=== PATIENT | male | born 1960 | race Caucasian/White ===

== ENCOUNTER 2024-12-24 22:02 | Inpatient (IN) | payer MEDICARE, MEDICAID ==
[~2024-12-24] VITALS: Ht 172.7 cm; Wt 74.4 kg
[2024-12-24] MEDS ORDERED: LEVO25TA9 PO (22:17)
[2024-12-24] MEDS ORDERED: QUET25TA PO (22:17)
[2024-12-24] MEDS ORDERED: ASCO500 PO (22:17)
[2024-12-24] MEDS ORDERED: INSLAN SQ (22:17)
[2024-12-24] MEDS ORDERED: PANT-31 PO (22:17)
[2024-12-24] MEDS ORDERED: LINE600T14 PO (22:17)
[2024-12-24 22:47] LABS: PLATELET COUNT (AUTO) 153 K/uL (150-450); RED BLOOD CELL COUNT(AUTO) 2.48 MIL/uL (4.50-5.90); RED CELL DISTRIBUTION WIDTH 17.4 % (11.5-14.5); WHITE BLOOD COUNT (AUTO) 6.5 K/uL (4.5-11.0)
[2024-12-24 22:55] LABS: CALCIUM, TOTAL 7.6 mg/dL (8.8-10.5); CREATININE 0.84 mg/dL (0.60-1.30); GLOMERULAR FILTR. RATE CALC > 60 mL/min (>60); GLUCOSE,RANDOM 148 mg/dL (70-110); SODIUM SERUM 142 mmol/L (136-145); UREA NITROGEN, BLOOD 20 mg/dL (7-18)
[2024-12-24 23:21] LABS: APPEARANCE,URINE CLEAR (CLEAR); GLUCOSE, URINE (UA) NEGATIVE (NEGATIVE); LEUKOCYTE ESTERASE ,URINE NEGATIVE (NEGATIVE); NITRATE,URINE NEGATIVE (NEGATIVE); OCCULT BLOOD,URINE NEGATIVE (NEGATIVE); PH,URINE DRUG SCREEN 6.0 (5.0-8.0); SPECIFIC GRAVITIY, URINE 1.023 (1.003-1.030)
[2024-12-24 23:26] LABS: ALCOHOL, URINE DRUG SCREEN NEGATIVE (NEGATIVE); AMPHET/METH SCREEN,URINE NEGATIVE (NEGATIVE); BARBITURATE SCREEN, URINE NEGATIVE (NEGATIVE); CANNABINOID SCREEN,URINE NEGATIVE (NEGATIVE); COCAINE SCREEN,URINE NEGATIVE (NEGATIVE); METHADONE SCREEN, URINE NEGATIVE (NEGATIVE)
[2024-12-25 02:36] VITALS: BP 126/70; PULSE 115; RESP 18; TEMP 98.1; O2SAT 98
[2024-12-25 04:07] VITALS: BP 126/70; PULSE 115; RESP 18; TEMP 98.1; O2SAT 98
[2024-12-25 05:53] LABS: COVID AG,FIA SOURCE NASAL SWAB
[2024-12-25 06:13] LABS: SARS-COV2 (COVID) ANTIGEN,FIA Negative (Negative)
[2024-12-25] MEDS ORDERED: NICOTINE 14 MG/24 HOUR PATCH TD PRN (06:15)
[2024-12-25] MEDS ORDERED: DOCUSATE SODIUM 100 MG CAPSULE PO PRN (06:15)
[2024-12-25] MEDS ORDERED: ACETAMINOPHEN 325 MG TABLET PO PRN (06:15)
[2024-12-25] MEDS ORDERED: GuaiFENesin/D-METHORPHAN [SUGAR-FREE] 200-20MG/10 ML SYRUP UDCUP PO PRN (06:15)
[2024-12-25] MEDS ORDERED: ONDANSETRON 4 MG TABLET PO PRN (06:15)
[2024-12-25] MEDS ORDERED: LOPERAMIDE HCL 2 MG CAPSULE PO PRN (06:15)
[2024-12-25] MEDS ORDERED: ALBUTEROL SULFATE HFA 90 MCG/PUFF 8 GM INHALER IH PRN (06:15)
[2024-12-25] MEDS ORDERED: PETROLATUM,WHITE 28 GM JELLY TP PRN (06:15)
[2024-12-25] MEDS ORDERED: MAGNESIUM HYDROXIDE SUSPENSION 30 ML UDCUP PO PRN (06:15)
[2024-12-25] MEDS: LEVOTHYROXINE SODIUM 25 MCG TABLET PO SCH (06:52)
[2024-12-25] MEDS: PANTOPRAZOLE SODIUM 40 MG DR TABLET PO SCH (06:54)
[2024-12-25] MEDS: LINEZOLID 600 MG TABLET PO SCH (10:20)
[2024-12-25] MEDS: ASCORBIC ACID 500 MG TABLET PO SCH (10:20)
[2024-12-25 10:33] VITALS: BP 146/87; PULSE 103; RESP 18; TEMP 98.1; O2SAT 98
[2024-12-25 19:55] LABS: GLUCOMETER DEV NAME(LOC) 3E.I 2; GLUCOSE,POINT OF CARE 207 MG/DL (70-110)
[2024-12-25 20:15] VITALS: BP 149/95; PULSE 100; RESP 18; TEMP 97.9; O2SAT 100
[2024-12-25] MEDS: IBUPROFEN 400 MG TABLET PO PRN (20:19)
[2024-12-25 20:40] VITALS: BP 149/95; PULSE 100; RESP 18; TEMP 97.9; O2SAT 100
[2024-12-25 21:09] VITALS: BP 150/100; PULSE 103; RESP 20; TEMP 97.8; O2SAT 100
[2024-12-25] MEDS: INSULIN LISPRO 100 UNITS/ML SQ PRN (21:11)
[2024-12-25] MEDS: INSULIN GLARGINE,HUM.REC.ANLOG 100 UNITS/ML SQ SCH (21:12)
[2024-12-25 21:54] LABS: TROPONIN I-HIGH SENSITIVITY 9 ng/L (<76)
[2024-12-26 04:39] VITALS: BP 142/90; PULSE 100; RESP 19; TEMP 98.1; O2SAT 100
[2024-12-26 06:45] VITALS: RESP 19
[2024-12-26 07:38] LABS: CHOL/HDL RATIO 3.4 (4.2-7.3); LDL CHOL (CALC.) 80.0 mg/dL (0-130)
[2024-12-26 08:20] VITALS: BP 158/90; PULSE 7; RESP 18; TEMP 98; O2SAT 100
[2024-12-26] MEDS: MULTIVITAMINS WITH MINERALS, THERAPEUTIC TABLET PO SCH (08:25)
[2024-12-26 12:11] LABS: GLUCOMETER DEV NAME(LOC) 3E.I 2; GLUCOSE,POINT OF CARE 229 MG/DL (70-110)
[2024-12-26 12:36] VITALS: BP 149/86; PULSE 76; RESP 18; TEMP 98.6; O2SAT 99
[2024-12-26 17:35] LABS: GLUCOMETER DEV NAME(LOC) 3E.I 2; GLUCOSE,POINT OF CARE 92 MG/DL (70-110)
[2024-12-26 20:11] VITALS: RESP 18
[2024-12-26] MEDS: ZOLPIDEM TARTRATE 10 MG TABLET PO PRN (20:57)
[2024-12-27 06:41] LABS: GLUCOMETER DEV NAME(LOC) 3E.I 2; GLUCOSE,POINT OF CARE 136 MG/DL (70-110)
[2024-12-27 09:02] VITALS: RESP 18; TEMP 98.7
[2024-12-27 12:01] LABS: GLUCOMETER DEV NAME(LOC) 3E.I 2; GLUCOSE,POINT OF CARE 152 MG/DL (70-110)
[2024-12-27 17:29] LABS: APPEARANCE,URINE CLEAR (CLEAR); GLUCOSE, URINE (UA) >=1000 mg/dL (NEGATIVE); LEUKOCYTE ESTERASE ,URINE NEGATIVE (NEGATIVE); NITRATE,URINE NEGATIVE (NEGATIVE); OCCULT BLOOD,URINE NEGATIVE (NEGATIVE); PH,URINE DRUG SCREEN 6.0 (5.0-8.0); SPECIFIC GRAVITIY, URINE 1.028 (1.003-1.030)
[2024-12-27 17:36] LABS: GLUCOMETER DEV NAME(LOC) 3E.I 2; GLUCOSE,POINT OF CARE 322 MG/DL (70-110)
[2024-12-27 17:36] LABS: ALCOHOL, URINE DRUG SCREEN NEGATIVE (NEGATIVE); AMPHET/METH SCREEN,URINE NEGATIVE (NEGATIVE); BARBITURATE SCREEN, URINE NEGATIVE (NEGATIVE); CANNABINOID SCREEN,URINE NEGATIVE (NEGATIVE); COCAINE SCREEN,URINE NEGATIVE (NEGATIVE); METHADONE SCREEN, URINE NEGATIVE (NEGATIVE)
[2024-12-27 17:41] LABS: SQUAMOUS EPITHELIAL CELL,UR Rare /LPF (None Seen)
[2024-12-27 21:09] VITALS: BP 116/84; RESP 18; TEMP 98.2; O2SAT 100
[2024-12-27 21:26] LABS: GLUCOMETER DEV NAME(LOC) 3E.I 2; GLUCOSE,POINT OF CARE 238 MG/DL (70-110)
[2024-12-28 06:26] LABS: GLUCOMETER DEV NAME(LOC) 3E.I 2; GLUCOSE,POINT OF CARE 131 MG/DL (70-110)
[2024-12-28 11:38] VITALS: RESP 17
[2024-12-28 16:54] LABS: CANDIDA AURIS PCR,SURVEILLANCE Not Detected C(t) (Not Detectd)
[2024-12-28 20:15] VITALS: RESP 18
[2024-12-28 20:51] LABS: GLUCOMETER DEV NAME(LOC) 3E.I 2; GLUCOSE,POINT OF CARE 242 MG/DL (70-110)
[2024-12-29 06:05] LABS: GLUCOMETER DEV NAME(LOC) 3E.I 2; GLUCOSE,POINT OF CARE 162 MG/DL (70-110)
[2024-12-29 08:28] VITALS: RESP 18
[2024-12-29 17:01] LABS: GLUCOMETER DEV NAME(LOC) 3E.I 2; GLUCOSE,POINT OF CARE 243 MG/DL (70-110)
[2024-12-29 20:31] LABS: GLUCOMETER DEV NAME(LOC) 3E.I 2; GLUCOSE,POINT OF CARE 238 MG/DL (70-110)
[2024-12-29 21:20] VITALS: BP 121/71; PULSE 99; RESP 18; TEMP 97.5; O2SAT 99
[2024-12-30 00:25] VITALS: BP 130/81; PULSE 84; RESP 18; O2SAT 97
[2024-12-30 06:55] LABS: GLUCOMETER DEV NAME(LOC) 3E.I 2; GLUCOSE,POINT OF CARE 117 MG/DL (70-110)
[2024-12-30 08:05] VITALS: RESP 17
[2024-12-30 19:51] LABS: GLUCOMETER DEV NAME(LOC) 3E.I 2; GLUCOSE,POINT OF CARE 179 MG/DL (70-110)
[2024-12-30 20:23] VITALS: BP 139/87; PULSE 94; RESP 19; TEMP 98.1; O2SAT 99
[2024-12-31 09:12] VITALS: RESP 18
[2024-12-31 11:15] LABS: GLUCOMETER DEV NAME(LOC) 3E.I 2; GLUCOSE,POINT OF CARE 172 MG/DL (70-110)
[2024-12-31 17:26] LABS: GLUCOMETER DEV NAME(LOC) 3E.I 2; GLUCOSE,POINT OF CARE 222 MG/DL (70-110)
[2024-12-31 21:10] LABS: GLUCOMETER DEV NAME(LOC) 3E.I 2; GLUCOSE,POINT OF CARE 258 MG/DL (70-110)
[2024-12-31 23:16] VITALS: RESP 18
[2025-01-01 11:30] VITALS: BP 137/69; PULSE 94; RESP 18; TEMP 98.3
[2025-01-01 21:21] LABS: GLUCOMETER DEV NAME(LOC) 3E.I 2; GLUCOSE,POINT OF CARE 253 MG/DL (70-110)
[2025-01-01 22:06] VITALS: BP 113/64; PULSE 72; RESP 18; TEMP 97.7; O2SAT 98
[2025-01-01] MEDS: LORazepam 2 MG/ML VIAL IM ONE (22:08)
[2025-01-02 06:51] LABS: GLUCOMETER DEV NAME(LOC) 3E.I 2; GLUCOSE,POINT OF CARE 97 MG/DL (70-110)
[2025-01-02 08:15] VITALS: RESP 17
[2025-01-02 12:05] LABS: GLUCOMETER DEV NAME(LOC) 3E.I 2; GLUCOSE,POINT OF CARE 146 MG/DL (70-110)
[2025-01-02 17:56] LABS: GLUCOMETER DEV NAME(LOC) 3E.I 2; GLUCOSE,POINT OF CARE 135 MG/DL (70-110)
[2025-01-02 20:53] VITALS: BP 139/79; PULSE 103; RESP 18; TEMP 99; O2SAT 97
[2025-01-02 21:30] LABS: GLUCOMETER DEV NAME(LOC) 3E.I 2; GLUCOSE,POINT OF CARE 230 MG/DL (70-110)
[2025-01-03 05:57] VITALS: BP 129/81; PULSE 96; RESP 19; TEMP 97.9; O2SAT 95
[2025-01-03 06:35] LABS: GLUCOMETER DEV NAME(LOC) 3E.I 2; GLUCOSE,POINT OF CARE 133 MG/DL (70-110)
[2025-01-03 10:23] VITALS: RESP 18
[2025-01-03 11:40] LABS: GLUCOMETER DEV NAME(LOC) 3E.I 2; GLUCOSE,POINT OF CARE 141 MG/DL (70-110)
[2025-01-03 16:18] VITALS: BP 132/78; PULSE 88; RESP 18; O2SAT 98
[2025-01-03 17:18] VITALS: RESP 17
[2025-01-03 17:46] LABS: GLUCOMETER DEV NAME(LOC) 3E.I 2; GLUCOSE,POINT OF CARE 250 MG/DL (70-110)
[2025-01-03 20:41] VITALS: RESP 18
[2025-01-03 21:31] LABS: GLUCOMETER DEV NAME(LOC) 3E.I 2; GLUCOSE,POINT OF CARE 214 MG/DL (70-110)
[2025-01-04 06:46] LABS: GLUCOMETER DEV NAME(LOC) 3E.I 2; GLUCOSE,POINT OF CARE 112 MG/DL (70-110)
[2025-01-04 08:38] VITALS: BP 144/70; PULSE 104; RESP 18; TEMP 97.7; O2SAT 97
[2025-01-04 11:51] LABS: GLUCOMETER DEV NAME(LOC) 3E.I 2; GLUCOSE,POINT OF CARE 164 MG/DL (70-110)
[2025-01-04 17:35] LABS: GLUCOMETER DEV NAME(LOC) 3E.I 2; GLUCOSE,POINT OF CARE 290 MG/DL (70-110)
[2025-01-04 19:46] LABS: GLUCOMETER DEV NAME(LOC) 3E.I 2; GLUCOSE,POINT OF CARE 304 MG/DL (70-110)
[2025-01-04] MEDS: INSULIN GLARGINE,HUM.REC.ANLOG 100 UNITS/ML SQ SCH (21:07)
[2025-01-04 21:36] VITALS: BP 123/65; PULSE 113; RESP 17; TEMP 98.8; O2SAT 98
[2025-01-04 23:23] VITALS: BP 136/77; PULSE 101; RESP 18; TEMP 98.7; O2SAT 97
[2025-01-05 06:10] LABS: GLUCOMETER DEV NAME(LOC) 3E.I 2; GLUCOSE,POINT OF CARE 142 MG/DL (70-110)
[2025-01-05 09:08] VITALS: BP 124/67; PULSE 99; RESP 17; TEMP 97.8; O2SAT 100
[2025-01-05 11:41] LABS: GLUCOMETER DEV NAME(LOC) 3E.I 2; GLUCOSE,POINT OF CARE 156 MG/DL (70-110)
[2025-01-05 15:35] VITALS: BP 136/75; PULSE 89; RESP 18; TEMP 98; O2SAT 99
[2025-01-05 18:05] LABS: GLUCOMETER DEV NAME(LOC) 3E.I 2; GLUCOSE,POINT OF CARE 169 MG/DL (70-110)
[2025-01-05 20:11] LABS: GLUCOMETER DEV NAME(LOC) 3E.I 2; GLUCOSE,POINT OF CARE 171 MG/DL (70-110)
[2025-01-05 21:00] VITALS: BP 124/53; PULSE 97; RESP 18; TEMP 97; O2SAT 99
[2025-01-06 00:20] VITALS: BP 101/64; PULSE 97; RESP 18; TEMP 97.2; O2SAT 98
[2025-01-06 06:15] LABS: GLUCOMETER DEV NAME(LOC) 3E.I 2; GLUCOSE,POINT OF CARE 108 MG/DL (70-110)
[2025-01-06 09:26] VITALS: BP 129/74; PULSE 102; RESP 19; TEMP 98.4; O2SAT 98
[2025-01-06] MEDS: MAG HYDROX/ALUMINUM HYD/SIMETH ES 30 ML SUSPENSION UDCUP PO PRN (09:58)
[2025-01-06 10:00] VITALS: BP 129/74; PULSE 102; RESP 19; TEMP 98.4; O2SAT 98
[2025-01-06 12:21] LABS: GLUCOMETER DEV NAME(LOC) 3E.I 2; GLUCOSE,POINT OF CARE 228 MG/DL (70-110)
[2025-01-06 17:21] LABS: GLUCOMETER DEV NAME(LOC) 3E.I 2; GLUCOSE,POINT OF CARE 268 MG/DL (70-110)
[2025-01-06 20:46] LABS: GLUCOMETER DEV NAME(LOC) 3E.I 2; GLUCOSE,POINT OF CARE 141 MG/DL (70-110)
[2025-01-06 20:59] VITALS: BP 105/64; PULSE 99; RESP 18; TEMP 98.5; O2SAT 98
[2025-01-07 06:01] LABS: GLUCOMETER DEV NAME(LOC) 3E.I 2; GLUCOSE,POINT OF CARE 96 MG/DL (70-110)
[2025-01-07 08:20] VITALS: BP 117/66; PULSE 107; RESP 18; TEMP 98.7; O2SAT 97
[2025-01-07 12:01] LABS: GLUCOMETER DEV NAME(LOC) 3E.I 2; GLUCOSE,POINT OF CARE 165 MG/DL (70-110)
[2025-01-07 17:46] LABS: GLUCOMETER DEV NAME(LOC) 3E.I 2; GLUCOSE,POINT OF CARE 396 MG/DL (70-110)
[2025-01-07 20:01] LABS: GLUCOMETER DEV NAME(LOC) 3EX.2; GLUCOSE,POINT OF CARE 220 MG/DL (70-110)
[2025-01-07 20:59] VITALS: BP 127/71; PULSE 109; RESP 18; TEMP 97.9; O2SAT 98
[2025-01-08 05:50] LABS: GLUCOMETER DEV NAME(LOC) 3E.I 2; GLUCOSE,POINT OF CARE 168 MG/DL (70-110)
[2025-01-08 08:00] VITALS: BP 125/92; PULSE 101; RESP 18; TEMP 97; O2SAT 96
[2025-01-08 12:01] LABS: GLUCOMETER DEV NAME(LOC) 3E.I 2; GLUCOSE,POINT OF CARE 260 MG/DL (70-110)
[2025-01-08 20:06] LABS: GLUCOMETER DEV NAME(LOC) 3E.I 2; GLUCOSE,POINT OF CARE 300 MG/DL (70-110)
[2025-01-08 20:35] LABS: GLUCOMETER DEV NAME(LOC) 3EX.2; GLUCOSE,POINT OF CARE 282 MG/DL (70-110)
[2025-01-08 22:09] VITALS: BP 127/72; PULSE 98; RESP 18; TEMP 97.8; O2SAT 98
[2025-01-09 06:05] LABS: GLUCOMETER DEV NAME(LOC) 3EX.2; GLUCOSE,POINT OF CARE 118 MG/DL (70-110)
[2025-01-09 10:13] VITALS: BP 125/66; PULSE 102; RESP 15; TEMP 97.7; O2SAT 96
[2025-01-09 12:06] LABS: GLUCOMETER DEV NAME(LOC) 3EX.2; GLUCOSE,POINT OF CARE 162 MG/DL (70-110)
[2025-01-09 16:46] LABS: GLUCOMETER DEV NAME(LOC) 3E.I 2; GLUCOSE,POINT OF CARE 240 MG/DL (70-110)
[2025-01-09 21:15] VITALS: BP 127/84; PULSE 100; RESP 18; TEMP 98.1; O2SAT 98
[2025-01-09 21:25] LABS: GLUCOMETER DEV NAME(LOC) 3E.I 2; GLUCOSE,POINT OF CARE 387 MG/DL (70-110)
[2025-01-10 06:16] LABS: GLUCOMETER DEV NAME(LOC) 3E.I 2; GLUCOSE,POINT OF CARE 145 MG/DL (70-110)
[2025-01-10 08:58] VITALS: BP 134/68; PULSE 99; RESP 16; TEMP 97.7; O2SAT 100
[2025-01-10 12:32] LABS: GLUCOMETER DEV NAME(LOC) 3E.I 2; GLUCOSE,POINT OF CARE 237 MG/DL (70-110)
== END 2025-01-10 13:40 | disposition home or self-care (01) | DRG 885 ==
LOC: EMS 22:02 → UNDOADMIN 12-25 01:55 → 3EX 12-25 01:55 → 3EI 01-08 18:07 → 3EX 01-09 15:42
PROVIDERS: ADMIT Psychiatry & Neurology Psychiatry; ATTEND Psychiatry & Neurology Psychiatry
PROC: GZHZZZZ Group Psychotherapy (ICD-10-PCS; principal; 2024-12-25)
PROC: GZ52ZZZ Individual Psychotherapy, Cognitive (ICD-10-PCS; 2025-01-02)
DX: F29 Unspecified psychosis not due to a substance or known physiological condition (principal); R45.851 Suicidal ideations; E03.9 Hypothyroidism, unspecified; K21.9 Gastro-esophageal reflux disease without esophagitis; E11.9 Type 2 diabetes mellitus without complications; I10 Essential (primary) hypertension; F32.9 Major depressive disorder, single episode, unspecified; R41.83 Borderline intellectual functioning; Z20.822 Contact with and (suspected) exposure to COVID-19; Z79.4 Long term (current) use of insulin
CPT/HCPCS: 80048; 80061; 80307; 81001; 81003; 82962; 83036; 84443; 84484; 85025; 87070; 87081; 87186; 87205; 87481; 93005; 99285; G0378; G0480; J1200; J1630; J1815; J2060